=== PATIENT | female | born 1970 | race Two or more races ===

== ENCOUNTER 2022-02-27 11:50 | Emergency (ER) | payer SELFPAY ==
[~2022-02-27] VITALS: Ht 170.2 cm; Wt 86.2 kg
[2022-02-27] MEDS ORDERED: LIDOCAINE 1% INJ 50 ML MDV IJ ONE (12:08)
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
--- NOTE | 2022-02-27 13:30 | NUR ---
SUTURE DONE BY DR MOON
[2022-02-27] MEDS ORDERED: HYDR-4209 PO (13:48)
[2022-02-27] MEDS ORDERED: CEFU500T66 PO (13:48)
--- NOTE | 2022-02-27 14:00 | NUR ---
Patient discharged to home in stable condition. Written and verbal after care instructions given. Patient verbalizes understanding of instruction.
[2022-02-27 14:06] VITALS: BP 125/94
== END 2022-02-27 14:00 | disposition home or self-care (01) ==
LOC: ER 11:53
DX: S62.632B Displaced fracture of distal phalanx of right middle finger, initial encounter for open fracture (principal); Z79.899 Other long term (current) drug therapy; W23.0XXA Caught, crushed, jammed, or pinched between moving objects, initial encounter; Y93.89 Activity, other specified; Y92.89 Other specified places as the place of occurrence of the external cause; Y99.8 Other external cause status
CPT/HCPCS: 99283; 12001; 73140; J3490; A6403

== ENCOUNTER 2022-03-04 13:49 | Outpatient (CLI) | payer SELFPAY ==
[~2022-03-04 13:49] MED LIST: CEFU500T66 PO; HYDR-4209 PO
== END 2022-03-04 23:59 | disposition home or self-care (01) ==
LOC: WOU 13:49
PROVIDERS: ATTEND Surgery
DX: S61.212A Laceration without foreign body of right middle finger without damage to nail, initial encounter (principal); W23.0XXA Caught, crushed, jammed, or pinched between moving objects, initial encounter; Y92.008 Other place in unspecified non-institutional (private) residence as the place of occurrence of the external cause; S62.630D Displaced fracture of distal phalanx of right index finger, subsequent encounter for fracture with routine healing; W23.0XXD Caught, crushed, jammed, or pinched between moving objects, subsequent encounter; M79.641 Pain in right hand
CPT/HCPCS: 17250

== ENCOUNTER 2022-03-08 13:06 | Outpatient (CLI) | payer SELFPAY | END 2022-03-08 23:59 | disposition home or self-care (01) | LOC: WOU 13:06 | PROVIDERS: ATTEND Surgery | DX: S61.212D Laceration without foreign body of right middle finger without damage to nail, subsequent encounter (principal); S62.630D Displaced fracture of distal phalanx of right index finger, subsequent encounter for fracture with routine healing; W23.0XXD Caught, crushed, jammed, or pinched between moving objects, subsequent encounter; M79.641 Pain in right hand | CPT/HCPCS: G0463 ==